=== PATIENT | male | born 1965 | race Caucasian/White ===

== ENCOUNTER 2021-08-31 03:02 | Inpatient (IN) | payer MEDICAID, OTHER ==
[2021-08-31] VITALS (27 sets, daily range): BP systolic 87–116; BP diastolic 46–86
[~2021-08-31] VITALS: Ht 170.2 cm; Wt 78.9 kg
[2021-08-31] MEDS ORDERED: PANTOPRAZOLE 80 MG in SODIUM CHLORIDE 0.9% 100 ML IV STA (03:46)
[2021-08-31] MEDS ORDERED: PANTOPRAZOLE SODIUM 40 MG/VIAL IV STA (03:46)
[2021-08-31] MEDS ORDERED: OCTREOTIDE 1,000 MCG in SODIUM CHLORIDE 0.9% 100 ML IV STA (03:46)
[2021-08-31] MEDS ORDERED: SODIUM CHLORIDE 0.9% 1000ML BAG (SEPSIS BOLUS) IV ONE (04:00)
[2021-08-31 04:19] LABS: BASOPHILS % 1.3 % (0.0-2.0); EOSINOPHILS % 6.8 % (0.0-5.0); HEMATOCRIT. 38.6 % (42.0-52.0); HEMOGLOBIN. 12.7 g/dL (14.0-18.0); LYMPHOCYTES % 30.8 % (20.0-50.0); MEAN CORPUSCULAR HEMOGLOBIN 31.2 pg (28.0-32.0); MEAN CORPUSCULAR VOLUME 94.8 fL (80.0-94.0); MEAN PLATELET VOLUME 9.2 fl (7.4-10.4); MONOCYTES % 7.9 % (2.0-8.0); NEUTROPHILS % 53.2 % (40.0-76.0); PLATELET 190 x1000/uL (130-400); RED BLOOD CELL COUNT 4.07 mill/uL (4.7-6.1); RED CELL DISTRIBUTION WIDTH 15.4 % (11.6-14.6)
[2021-08-31 04:24] LABS: CHLORIDE 113 mEq/L (98-107)
[2021-08-31 04:25] LABS: INR 1.3; PROTHROMBIN TIME 13.5 sec (9.6-11.0)
[2021-08-31] MEDS ORDERED: OCTREOTIDE IV NR (04:30)
[2021-08-31] MEDS ORDERED: SODIUM CHLORIDE 0.9% IV NR (04:30)
[2021-08-31] MEDS ORDERED: PANTOPRAZOLE 80 MG in SODIUM CHLORIDE 0.9% 100 ML IV NR (04:30)
[2021-08-31] MEDS ORDERED: ONDANSETRON HCL 4MG/2ML INJ IV PRN (09:30)
[2021-08-31] MEDS: PANTOPRAZOLE SODIUM 40 MG/VIAL IV SCH ×2 (10:00→20:28)
[2021-08-31] MEDS: SODIUM CHLORIDE 0.45% 1,000 ML IV SCH ×2 (10:00→23:45)
[2021-08-31] MEDS ORDERED: OCTREOTIDE 1,000 MCG in SODIUM CHLORIDE 0.9% 100 ML IV SCH (12:00)
[2021-08-31 12:23] LABS: HEMATOCRIT 38.9 % (42.0-52.0); HEMOGLOBIN 13.1 g/dL (14.0-18.0)
[2021-08-31] MEDS ORDERED: FOLIC ACID 1 MG, THIAMINE HCL 100 MG, MVI, ADULT NO.1 10 ML in DEXTROSE 5% WATER 1,000 ML IV ONE ×4 (14:00)
[2021-08-31 18:17] LABS: HEMOGLOBIN 10.5 g/dL (14.0-18.0)
[2021-08-31] MEDS ORDERED: OCTREOTIDE 1,000 MCG in SODIUM CHLORIDE 0.9% 98 ML IV SCH (18:54)
[2021-08-31] MEDS: CHLORDIAZEPOXIDE 25MG CAPSULE PO SCH (22:05)
[2021-09-01] VITALS (51 sets, daily range): BP systolic 84–130; BP diastolic 27–84
[2021-09-01 00:40] LABS: HEMATOCRIT 27.2 % (42.0-52.0); HEMOGLOBIN 9.3 g/dL (14.0-18.0)
[2021-09-01 04:32] LABS: BASOPHILS % 0.8 % (0.0-2.0); EOSINOPHILS % 3.2 % (0.0-5.0); HEMOGLOBIN. 8.8 g/dL (14.0-18.0); LYMPHOCYTES % 24.7 % (20.0-50.0); MEAN CORPUSCULAR HEMOGLOBIN 31.4 pg (28.0-32.0); MEAN CORPUSCULAR VOLUME 92.4 fL (80.0-94.0); MEAN PLATELET VOLUME 8.6 fl (7.4-10.4); MONOCYTES % 10.3 % (2.0-8.0); PLATELET 132 x1000/uL (130-400); RED BLOOD CELL COUNT 2.81 mill/uL (4.7-6.1); RED CELL DISTRIBUTION WIDTH 15.8 % (11.6-14.6)
[2021-09-01 04:47] LABS: INR 1.2; PROTHROMBIN TIME 13.1 sec (9.6-11.0)
[2021-09-01 04:52] LABS: CHLORIDE 112 mEq/L (98-107)
[2021-09-01 05:01] LABS: TOTAL IRON BINDING CAPACITY 213 ug/dL (250-450)
[2021-09-01 05:20] LABS: FOLIC ACID (FOLATE) SERUM 18.2 ng/mL (>5.38)
[2021-09-01] MEDS: CHLORDIAZEPOXIDE 25MG CAPSULE PO SCH ×3 (06:00→21:49)
[2021-09-01] MEDS: PANTOPRAZOLE SODIUM 40 MG/VIAL IV SCH ×2 (08:46→21:50)
[2021-09-01] MEDS: OCTREOTIDE 1,000 MCG in SODIUM CHLORIDE 0.9% 98 ML IV SCH (10:23)
[2021-09-01 12:24] LABS: HEMATOCRIT 26.3 % (42.0-52.0)
[2021-09-01] MEDS: LACTULOSE 20G/30ML UDC PO SCH ×2 (13:01→21:49)
[2021-09-01] MEDS: SODIUM CHLORIDE 0.45% 1,000 ML IV SCH (13:01)
[2021-09-01] MEDS ORDERED: PROPOFOL 200MG/20ML VIAL IV ONE (14:10)
[2021-09-01] MEDS ORDERED: LIDOCAINE HCL 1% 20ML VIAL (Pyxis) INJ ONE (14:10)
[2021-09-01] MEDS ORDERED: ONDANSETRON HCL 4MG/2ML INJ ONE (14:11)
[2021-09-01] MEDS ORDERED: DEXAMETHASONE 4MG/ML 1ML VIAL ONE (14:11)
[2021-09-01] MEDS ORDERED: ETOMIDATE 2MG/ML 10ML VIAL IV ONE (14:27)
[2021-09-01] MEDS ORDERED: EPHEDRINE SULFATE 50MG/ML VIAL ONE (14:37)
[2021-09-01] MEDS: SUCRALFATE 1G TABLET PO SCH ×2 (17:12→21:49)
[2021-09-01 19:04] LABS: HEMATOCRIT 25.9 % (42.0-52.0); HEMOGLOBIN 8.8 g/dL (14.0-18.0)
[2021-09-02] VITALS (22 sets, daily range): BP systolic 102–142; BP diastolic 42–76
[2021-09-02 00:46] LABS: HEMATOCRIT 23.4 % (42.0-52.0); HEMOGLOBIN 8.1 g/dL (14.0-18.0)
[2021-09-02] MEDS: SODIUM CHLORIDE 0.45% 1,000 ML IV SCH ×2 (02:30→15:34)
[2021-09-02] MEDS: SUCRALFATE 1G TABLET PO SCH ×4 (06:27→21:27)
[2021-09-02] MEDS: LACTULOSE 20G/30ML UDC PO SCH ×3 (06:27→21:27)
[2021-09-02] MEDS: OCTREOTIDE 1,000 MCG in SODIUM CHLORIDE 0.9% 98 ML IV SCH (06:27)
[2021-09-02] MEDS: CHLORDIAZEPOXIDE 25MG CAPSULE PO SCH ×3 (06:27→21:27)
[2021-09-02 06:54] LABS: HEMATOCRIT 22.7 % (42.0-52.0)
[2021-09-02] MEDS ORDERED: OMEP40CA20 MT (08:29)
[2021-09-02] MEDS ORDERED: SUCR1TAB MT (08:29)
[2021-09-02] MEDS ORDERED: LACT10SO7 MT (08:29)
[2021-09-02] MEDS: PANTOPRAZOLE SODIUM 40 MG/VIAL IV SCH ×2 (09:00→21:27)
[2021-09-02 12:51] LABS: BASOPHILS % 0.4 % (0.0-2.0); EOSINOPHILS % 1.5 % (0.0-5.0); HEMATOCRIT. 25.3 % (42.0-52.0); HEMOGLOBIN. 8.6 g/dL (14.0-18.0); LYMPHOCYTES % 19.1 % (20.0-50.0); MEAN CORPUSCULAR HEMOGLOBIN 31.7 pg (28.0-32.0); MEAN CORPUSCULAR VOLUME 93.4 fL (80.0-94.0); MEAN PLATELET VOLUME 8.6 fl (7.4-10.4); MONOCYTES % 8.2 % (2.0-8.0); NEUTROPHILS % 70.8 % (40.0-76.0); PLATELET 163 x1000/uL (130-400); RED BLOOD CELL COUNT 2.71 mill/uL (4.7-6.1); RED CELL DISTRIBUTION WIDTH 15.3 % (11.6-14.6)
[2021-09-02 12:56] LABS: CHLORIDE 109 mEq/L (98-107)
[2021-09-02 19:00] LABS: HEMATOCRIT 25.4 % (42.0-52.0); HEMOGLOBIN 8.6 g/dL (14.0-18.0)
[2021-09-02] MEDS: CARVEDILOL 3.125 MG TABLET PO SCH (21:00)
[2021-09-03] VITALS (26 sets, daily range): BP systolic 89–132; BP diastolic 37–73
[2021-09-03 00:35] LABS: HEMATOCRIT 24.2 % (42.0-52.0); HEMOGLOBIN 8.1 g/dL (14.0-18.0)
[2021-09-03] MEDS ORDERED: SODIUM CHLORIDE 0.9% 500 ML IV ONE ×2 (01:00)
[2021-09-03] MEDS: SODIUM CHLORIDE 0.45% 1,000 ML IV SCH ×2 (04:40→17:45)
[2021-09-03 05:36] LABS: BASOPHILS % 0.7 % (0.0-2.0); EOSINOPHILS % 9.6 % (0.0-5.0); HEMATOCRIT. 23.3 % (42.0-52.0); HEMOGLOBIN. 8.1 g/dL (14.0-18.0); LYMPHOCYTES % 29.7 % (20.0-50.0); MEAN CORPUSCULAR HEMOGLOBIN 32.1 pg (28.0-32.0); MEAN CORPUSCULAR VOLUME 92.8 fL (80.0-94.0); MEAN PLATELET VOLUME 9.1 fl (7.4-10.4); MONOCYTES % 6.7 % (2.0-8.0); NEUTROPHILS % 53.3 % (40.0-76.0); PLATELET 141 x1000/uL (130-400); RED BLOOD CELL COUNT 2.51 mill/uL (4.7-6.1); RED CELL DISTRIBUTION WIDTH 15.3 % (11.6-14.6)
[2021-09-03 05:46] LABS: CHLORIDE 111 mEq/L (98-107)
[2021-09-03] MEDS: CHLORDIAZEPOXIDE 25MG CAPSULE PO SCH ×3 (06:00→21:12)
[2021-09-03] MEDS: OCTREOTIDE 1,000 MCG in SODIUM CHLORIDE 0.9% 98 ML IV SCH (06:05)
[2021-09-03] MEDS: LACTULOSE 20G/30ML UDC PO SCH ×3 (06:06→21:11)
[2021-09-03] MEDS: SUCRALFATE 1G TABLET PO SCH ×4 (06:30→21:12)
[2021-09-03] MEDS: PANTOPRAZOLE SODIUM 40 MG/VIAL IV SCH ×2 (09:00→21:11)
[2021-09-03] MEDS: CARVEDILOL 3.125 MG TABLET PO SCH (09:00)
[2021-09-03 13:00] LABS: HEMATOCRIT 23.4 % (42.0-52.0); HEMOGLOBIN 7.9 g/dL (14.0-18.0)
[2021-09-03 18:35] LABS: HEMATOCRIT 23.6 % (42.0-52.0); HEMOGLOBIN 7.9 g/dL (14.0-18.0)
[2021-09-04] VITALS (19 sets, daily range): BP systolic 92–110; BP diastolic 44–72
[2021-09-04 01:18] LABS: EOSINOPHILS % 11.5 % (0.0-5.0); HEMATOCRIT. 24.7 % (42.0-52.0); HEMOGLOBIN. 8.3 g/dL (14.0-18.0); LYMPHOCYTES % 30.1 % (20.0-50.0); MEAN CORPUSCULAR HEMOGLOBIN 31.8 pg (28.0-32.0); MEAN CORPUSCULAR VOLUME 94.3 fL (80.0-94.0); MEAN PLATELET VOLUME 8.6 fl (7.4-10.4); MONOCYTES % 11.7 % (2.0-8.0); NEUTROPHILS % 45.7 % (40.0-76.0); PLATELET 157 x1000/uL (130-400); RED BLOOD CELL COUNT 2.62 mill/uL (4.7-6.1); RED CELL DISTRIBUTION WIDTH 15.6 % (11.6-14.6)
[2021-09-04 01:33] LABS: CHLORIDE 107 mEq/L (98-107)
[2021-09-04 05:25] LABS: HEMATOCRIT 23.8 % (42.0-52.0); HEMOGLOBIN 8.1 g/dL (14.0-18.0)
[2021-09-04] MEDS: SUCRALFATE 1G TABLET PO SCH ×4 (06:00→20:52)
[2021-09-04] MEDS: CHLORDIAZEPOXIDE 25MG CAPSULE PO SCH ×3 (06:00→21:03)
[2021-09-04] MEDS: LACTULOSE 20G/30ML UDC PO SCH ×3 (06:00→20:52)
[2021-09-04] MEDS: PANTOPRAZOLE SODIUM 40 MG/VIAL IV SCH ×2 (08:34→20:52)
[2021-09-04] MEDS: SODIUM CHLORIDE 0.45% 1,000 ML IV SCH ×2 (08:34→20:40)
[2021-09-04 17:13] LABS: HEMATOCRIT 25.5 % (42.0-52.0); HEMOGLOBIN 8.5 g/dL (14.0-18.0)
[2021-09-04 21:37] LABS: HEMATOCRIT 24.9 % (42.0-52.0); HEMOGLOBIN 8.4 g/dL (14.0-18.0)
[2021-09-05] VITALS: BP 96/63
[2021-09-05 01:34] LABS: HEMATOCRIT 24.9 % (42.0-52.0); HEMOGLOBIN 8.3 g/dL (14.0-18.0)
[2021-09-05 04:00] VITALS: BP 98/47
[2021-09-05 05:31] LABS: EOSINOPHILS % 11.7 % (0.0-5.0); HEMATOCRIT. 23.6 % (42.0-52.0); HEMOGLOBIN. 8.2 g/dL (14.0-18.0); LYMPHOCYTES % 29.5 % (20.0-50.0); MEAN CORPUSCULAR HEMOGLOBIN 32.3 pg (28.0-32.0); MEAN CORPUSCULAR VOLUME 93.2 fL (80.0-94.0); MEAN PLATELET VOLUME 9.1 fl (7.4-10.4); NEUTROPHILS % 46.8 % (40.0-76.0); PLATELET 166 x1000/uL (130-400); RED BLOOD CELL COUNT 2.54 mill/uL (4.7-6.1); RED CELL DISTRIBUTION WIDTH 15.4 % (11.6-14.6)
[2021-09-05 06:08] LABS: CHLORIDE 108 mEq/L (98-107)
[2021-09-05] MEDS: LACTULOSE 20G/30ML UDC PO SCH ×2 (06:46→13:44)
[2021-09-05] MEDS: CHLORDIAZEPOXIDE 25MG CAPSULE PO SCH (06:46)
[2021-09-05 08:00] VITALS: BP 97/51
[2021-09-05] MEDS: PANTOPRAZOLE SODIUM 40 MG/VIAL IV SCH (09:54)
[2021-09-05] MEDS: SUCRALFATE 1G TABLET PO SCH ×3 (09:54→17:24)
[2021-09-05 12:00] VITALS: BP 96/50
[2021-09-05] MEDS: SODIUM CHLORIDE 0.45% 1,000 ML IV SCH (13:44)
[2021-09-05 16:00] VITALS: BP 96/54
[2021-09-05] MEDS ORDERED: HYDROCODONE/ACETAMINOPHEN 5/325MG TABLET PO PRN (16:45)
[2021-09-05] MEDS ORDERED: LACT10SO7 PO (19:41)
[2021-09-05 20:50] VITALS: BP 103/51
== END 2021-09-05 21:10 | disposition home or self-care (01) | DRG 241 ==
LOC: ER 03:02 → MICUSO 05:52 → EDBEDREQSVC 09:32 → 8WST 09-04 18:00
PROVIDERS: ADMIT Internal Medicine; ATTEND Internal Medicine
PROC: 30233N1 Transfusion of Nonautologous Red Blood Cells into Peripheral Vein, Percutaneous Approach (ICD-10-PCS; 2021-08-31)
PROC: 0DB78ZX Excision of Stomach, Pylorus, Via Natural or Artificial Opening Endoscopic, Diagnostic (ICD-10-PCS; principal; 2021-09-01)
DX: K29.71 Gastritis, unspecified, with bleeding (principal); R57.8 Other shock; G93.41 Metabolic encephalopathy; E46 Unspecified protein-calorie malnutrition; K25.4 Chronic or unspecified gastric ulcer with hemorrhage; E87.2 Acidosis; K74.60 Unspecified cirrhosis of liver; D53.9 Nutritional anemia, unspecified; K70.9 Alcoholic liver disease, unspecified; D50.9 Iron deficiency anemia, unspecified; Z20.822 Contact with and (suspected) exposure to COVID-19; F41.9 Anxiety disorder, unspecified; Z71.41 Alcohol abuse counseling and surveillance of alcoholic; Z68.27 Body mass index [BMI] 27.0-27.9, adult
CPT/HCPCS: 36415; 73030; 74176; 76700; 80048; 80053; 80076; 82140; 82248; 82270; 82607; 82728; 82746; 82962; 83540; 83550; 83605; 85014; 85018; 85025; 86850; 86900; 86920; 87426; 88305; 88312; 88313; 93005; 99291; C9113; J1100; J2354; J2405; J2704; J3411; J3490; J7030; J7050; J7070; P9016